=== PATIENT | male | born 1950 | race Caucasian/White ===

== ENCOUNTER 2017-04-11 19:44 | Emergency (ER) | payer OTHER ==
[~2017-04-11] VITALS: Ht 182.9 cm; Wt 100.0 kg
[~2017-04-11 19:44] MED LIST: CYCL-36 PO; IBUP800T23 PO; PRIL20CA PO
[2017-04-11] MEDS ORDERED: IOHEXOL 350 MG/ML 10 ML VIAL (for RAD DIAG) IVCONTRAST ONE (19:45)
[2017-04-11 19:52] VITALS: BP 155/95; PULSE 87; RESP 18; TEMP 98.2; O2SAT 95
[2017-04-11 20:00] VITALS: BP 152/95; PULSE 78; RESP 18; O2SAT 96
[2017-04-11] MEDS ORDERED: SODIUM CHLORIDE 0.9% FLUSH 10 ML FLUSH IVF PRN (20:00)
[2017-04-11] MEDS ORDERED: SODIUM CHLOR 0.9% 1000 ML INJ 1,000 ML IV ONE (20:00)
[2017-04-11] MEDS ORDERED: MORPHINE SULFATE 8 MG/ML INJ IV PUSH ONE (20:00)
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
[2017-04-11] MEDS ORDERED: HYDROmorphone HCL PF 0.5 MG/0.5 ML SYRINGE IV PUSH ONE ×2 (20:45→22:30)
[2017-04-11 20:50] LABS: AUTOMATED NEUTROPHIL # 5.5 TH/MM3 (1.8-7.7); BASOPHIL % 0.5 % (0.0-2.0); EOSINOPHIL # 0.1 TH/MM3 (0-0.4); EOSINOPHIL % 1.5 % (0.0-4.0); HEMATOCRIT 56.7 % (39.0-51.0); HEMOGLOBIN 19.2 GM/DL (13.0-17.0); LYMPH % 34.7 % (9.0-44.0); LYMPHOCYTE # 3.4 TH/MM3 (1.0-4.8); MEAN CELL VOLUME 102.2 FL (80.0-100.0); MEAN CORPUSCULAR HEMOGLOBIN 34.7 PG (27.0-34.0); MEAN CORPUSCULAR HGB CONC 33.9 % (32.0-36.0); MEAN PLATELET VOLUME 8.1 FL (7.0-11.0); MONOCYTE # 0.6 TH/MM3 (0-0.9); NEUT % 57.3 % (16.0-70.0); PLATELET COUNT 267 TH/MM3 (150-450); RED BLOOD COUNT 5.55 MIL/MM3 (4.50-5.90); RED CELL DISTRIBUTION WIDTH 16.5 % (11.6-17.2); WHITE BLOOD COUNT 9.7 TH/MM3 (4.0-11.0)
[2017-04-11 21:10] LABS: PROTHROMBIN TIME - PATIENT 10.8 SEC (9.8-11.6)
[2017-04-11 22:09] VITALS: BP 143/89; PULSE 81; RESP 18; O2SAT 96
[2017-04-11] MEDS ORDERED: HYDROmorphone HCL PF 1 MG/ML VIAL IV PUSH ONE (22:15)
[2017-04-11 22:33] LABS: BICARBONATE 26.5 MEQ/L (21.0-32.0); CALCIUM 8.1 MG/DL (8.5-10.1); CREATININE 0.85 MG/DL (0.60-1.30)
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
[2017-04-12] MEDS ORDERED: HYDR-3366 PO (00:16)
[2017-04-12] MEDS ORDERED: oxyCODONE/ACETAMINOPHEN 5 MG/325 MG TAB PO ONE (00:30)
[2017-04-19] MEDS ORDERED: MOBI15TA PO (12:46)
[2017-04-19] MEDS ORDERED: ULTR50TA5 PO (12:46)
[2017-04-19] MEDS ORDERED: LIDO5DIS5 TOPICAL (12:46)
[2017-04-19] MEDS ORDERED: ROBA750T PO (12:46)
== END 2017-04-12 00:57 | disposition home or self-care (01) ==
LOC: NEPE 19:44
DX: S22.41XA Multiple fractures of ribs, right side, initial encounter for closed fracture (principal); F10.129 Alcohol abuse with intoxication, unspecified; Y90.7 Blood alcohol level of 200-239 mg/100 ml; V29.9XXA Motorcycle rider (driver) (passenger) injured in unspecified traffic accident, initial encounter; Y92.481 Parking lot as the place of occurrence of the external cause
CPT/HCPCS: 70450; 71010; 71260; 72125; 74177; 80048; 80307; 85025; 85610; 85730; 86850; 86900; 86901; 94150; 96361; 96374; 96375; 96376; 99285; J1170; J2270; J7030; Q9967

== ENCOUNTER 2017-05-21 17:05 | Emergency (ER) | payer OTHER, MEDICAID ==
[~2017-05-21] VITALS: Ht 182.9 cm; Wt 100.0 kg
[~2017-05-21 17:05] MED LIST changes: -CYCL-36 PO; +HYDR-3516 PO; -IBUP800T23 PO; +LEVA750T9 PO; +OXYGENDME NAS.CANULA; +PERI PO; -PRIL20CA PO; +VENTAER INH
[2017-05-21 17:14] VITALS: BP 147/85; PULSE 77; RESP 18; TEMP 98.1; O2SAT 95
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
[2017-05-21] MEDS ORDERED: KETOROLAC TROMETHAMINE 30 MG/ML (IVP) VIAL IV PUSH ONE (17:30)
[2017-05-21] MEDS ORDERED: SODIUM CHLORIDE 0.9% FLUSH 10 ML FLUSH IVF PRN (17:30)
--- NOTE | 2017-05-21 17:51 | RADRPT ---
EXAM DATE/TIME: 05/21/2017 17:31 [facility] COMPARISON: CHEST SINGLE AP, April 28, 2017, 22:26. INDICATIONS : Short of breath. MEDICAL HISTORY : None. SURGICAL HISTORY : None. ENCOUNTER: Initial ACUITY: 1 day PAIN SCORE: 0/10 LOCATION: Bilateral chest FINDINGS: A single view of the chest demonstrates the lungs to be symmetrically aerated without evidence of mas s, infiltrate or effusion. The cardiomediastinal contours are unremarkable. Osseous structures are intact. CONCLUSION: No acute disease. Berny Joyce MD on May 21, 2017 at 17:48 Board Certified Radiologist. This report was verified electronically.
[2017-05-21 17:55] LABS: BASOPHIL % 0.2 % (0.0-2.0); EOSINOPHIL # 0.3 TH/MM3 (0-0.4); EOSINOPHIL % 2.3 % (0.0-4.0); HEMATOCRIT 47.5 % (39.0-51.0); HEMO FLAGS DIFF FINAL; LYMPH % 36.2 % (9.0-44.0); MEAN CELL VOLUME 100.2 FL (80.0-100.0); MEAN CORPUSCULAR HEMOGLOBIN 35.5 PG (27.0-34.0); MEAN CORPUSCULAR HGB CONC 35.4 % (32.0-36.0); MONO % 6.5 % (0.0-8.0); NEUT % 54.8 % (16.0-70.0); PLATELET COUNT 188 TH/MM3 (150-450); RED BLOOD COUNT 4.74 MIL/MM3 (4.50-5.90); RED CELL DISTRIBUTION WIDTH 14.4 % (11.6-17.2)
[2017-05-21 18:09] LABS: PROTHROMBIN TIME - PATIENT 10.3 SEC (9.8-11.6)
[2017-05-21 18:30] LABS: ANION GAP 12 MEQ/L (5-15); BLOOD UREA NITROGEN 6 MG/DL (7-18); CHLORIDE 100 MEQ/L (98-107); GLOMERULAR FILTRATION RATE 88 ML/MIN (>89); MAGNESIUM 1.5 MG/DL (1.5-2.5); SODIUM (NA) 137 MEQ/L (136-145)
[2017-05-21 18:31] LABS: ALCOHOL 271 MG/DL (0-5); CREATINE KINASE 47 U/L (39-308)
[2017-05-21 18:33] LABS: POTASSIUM 2.7 MEQ/L (3.5-5.1)
[2017-05-21] MEDS ORDERED: POTASSIUM CHLORIDE 20 MEQ CONTROLLED RELEASE TAB PO ONE (19:15)
[2017-05-21] MEDS ORDERED: POTASSIUM CHLOR 20 MEQ PREMIX 100 ML IV ONE (19:15)
[2017-05-21] MEDS ORDERED: POTASSIUM CHLORIDE 10 MEQ CONTROLLED RELEASE TAB PO ONE (20:45)
[2017-05-21 22:20] VITALS: BP 138/82
[2017-05-22] MEDS ORDERED: IOHEXOL 350 MG/ML 10 ML VIAL (for RAD DIAG) IVCONTRAST ONE (01:37)
--- NOTE | 2017-05-22 01:51 | RADRPT ---
EXAM DATE/TIME: 05/22/2017 01:20 [facility] COMPARISON: No previous studies available for comparison. INDICATIONS : Shortness of breath. IV CONTRAST: 75 Omnipaque 350 (iohexol) IV RADIATION DOSE: 14.60 CTDIvol (mGy) MEDICAL HISTORY : None SURGICAL HISTORY : None. ENCOUNTER: Initial ACUITY: 1 day PAIN SCALE: 0/10 LOCATION: chest TECHNIQUE: Volumetric scanning of the chest was performed using a pulmonary embolism protocol MIP images were re constructed. Using automated exposure control and adjustment of the mA and/or kV according to patien t size, radiation dose was kept as low as reasonably achievable to obtain optimal diagnostic quality images. DICOM format image data is available electronically for review and comparison. Follow-up recommendations for detected pulmonary nodules are based at a minimum on nodule size and pa tient risk factors according to Fleischner Society Guidelines. FINDINGS: PULMONARY ARTERIES: No filling defects are seen in the pulmonary arteries through the segmental level. LUNGS: There is no consolidation or pneumothorax . There is mild centrilobular emphysema. Atelectasis is pre sent in the right middle lobe and inferior lingula there is atherosclerotic disease of the aorta.. PLEURAE: There is no pleural thickening or pleural effusion. MEDIASTINUM: There is good visualization of the great vessels of the middle mediastinum. No evidence of mediastin al or hilar adenopathy/mass. There is atherosclerotic disease of aorta. MUSCULOSKELETAL: There are multiple right lateral retractors that appears subacute but incompletely united. MISCELLANEOUS: The visualized upper abdominal organs demonstrate no acute abnormality. There is a 12 mm subcutaneous nodule in the inferior anterior chest. CONCLUSION: 1. No PE is identified. 2. Otherwise, no acute finding is identified. There are multiple subacute appearing right lateral rib fractures. Bijan Cagle MD on May 22, 2017 at 1:46 Board Certified Radiologist. This report was verified electronically.
--- NOTE | 2017-05-22 02:26 | PD ---
Physical Exam Narrative GENERAL: Well-nourished, well-developed patient. SKIN: Warm and dry. HEAD: Normocephalic EYES: No injection or drainage. ENT: No nasal drainage noted. NECK: Supple, trachea midline. CARDIOVASCULAR: Regular rate and rhythm RESPIRATORY: Breath sounds equal bilaterally. No accessory muscle use. GASTROINTESTINAL: Abdomen soft, non-tender, nondistended. NEUROLOGICAL: Awake and alert. Motor and sensory grossly within normal limits. Normal speech. Data Data Last Documented VS Vital Signs Date Time Temp Pulse Resp B/P (MAP) Pulse Ox O2 Delivery O2 Flow Rate FiO2 05/21/17 22:20 70 16 138/82 (100) 99 05/21/17 17:20 Nasal Cannula 2.00 05/21/17 17:14 98.1 Orders Orders Complete Blood Count With Diff (05/21/17 17:17) Basic Metabolic Panel (Bmp) (05/21/17 17:17) D-Dimer (05/21/17 17:17) Act Partial Throm Time (Ptt) (05/21/17 17:17) Prothrombin Time / Inr (Pt) (05/21/17 17:17) Magnesium (Mg) (05/21/17 17:17) Ckmb (Isoenzyme) Profile (05/21/17 17:17) Troponin I (05/21/17 17:17) Iv Access Insert/Monitor (05/21/17 17:17) Electrocardiogram (05/21/17 17:17) Ecg Monitoring (05/21/17 17:17) Oximetry (05/21/17 17:17) Oxygen Administration (05/21/17 17:17) Chest, Single Ap (05/21/17 17:17) Sodium Chloride 0.9% Flush (Ns Flush) (05/21/17 17:30) Alcohol (Ethanol) (05/21/17 17:17) Ketorolac Inj (Toradol Inj) (05/21/17 17:30) Ct Pulmonary Angiogram (05/21/17 ) Potassium Chlor 20 Meq Premix (Kcl 20 Me (05/21/17 19:15) Potassium Chloride (Kcl) (05/21/17 19:15) Potassium Chloride (Kcl) (05/21/17 20:45) Iohexol 350 Inj (Omnipaque 350 Inj) (05/22/17 01:37) Ed Discharge Order (05/22/17 02:22) Labs Laboratory Tests Test 05/21/17 17:30 White Blood Count 11.0 TH/MM3 Red Blood Count 4.74 MIL/MM3 Hemoglobin 16.8 GM/DL Hematocrit 47.5 % Mean Corpuscular Volume 100.2 FL Mean Corpuscular Hemoglobin 35.5 PG Mean Corpuscular Hemoglobin Concent 35.4 % Red Cell Distribution Width 14.4 % Platelet Count 188 TH/MM3 Mean Platelet Volume 7.6 FL Neutrophils (%) (Auto) 54.8 % Lymphocytes (%) (Auto) 36.2 % Monocytes (%) (Auto) 6.5 % Eosinophils (%) (Auto) 2.3 % Basophils (%) (Auto) 0.2 % Neutrophils # (Auto) 6.0 TH/MM3 Lymphocytes # (Auto) 4.0 TH/MM3 Monocytes # (Auto) 0.7 TH/MM3 Eosinophils # (Auto) 0.3 TH/MM3 Basophils # (Auto) 0.0 TH/MM3 CBC Comment DIFF FINAL Differential Comment Prothrombin Time 10.3 SEC Prothromb Time International Ratio 1.0 RATIO Activated Partial Thromboplast Time 26.0 SEC D-Dimer Quantitative (PE/DVT) 0.63 MG/L FEU Blood Urea Nitrogen 6 MG/DL Creatinine 0.86 MG/DL Random Glucose 99 MG/DL Calcium Level 7.7 MG/DL Magnesium Level 1.5 MG/DL Sodium Level 137 MEQ/L Potassium Level 2.7 MEQ/L Chloride Level 100 MEQ/L Carbon Dioxide Level 25.0 MEQ/L Anion Gap 12 MEQ/L Estimat Glomerular Filtration Rate 88 ML/MIN Total Creatine Kinase 47 U/L Troponin I LESS THAN 0.02 NG/ML Ethyl Alcohol Level 271 MG/DL [facility] Supervised Visit with [facility]I: Yes Interpretation(s) Last 24 hours Impressions Chest X-Ray 05/21/17 [id number] Signed Impressions: Service Date/Time: April 17:31 - CONCLUSION: No acute disease. Berny Joyce MD CT chest no PE Narrative Course I, Dr. ureña, have reviewed the advance practice practitioner's documentation and am in agreement, met with the patient face to face, made the diagnosis, and the medical decision making was done by me. *My assessment and Findings: 67-year-old male presented with shortness of breath and alcohol intoxication. No that the patient is sober he denies any concurrent complaints at this time. CT scan shows no emergent process. Patient has steady gait and clear speech. He was advised he needed to seek alcohol rehabilitation, Patient denies any new complaints, all questions answered. Patient knows that follow up is incumbent on them and to return to the emergency room immediately if new or worsening symptoms develop. Patient given strict return precautions, vitals reviewed and are normal, agrees to further workup as an outpatient. Diagnosis Primary Impression: Shortness of breath Additional Impression: Alcohol intoxication Qualified Codes: F10.920 - Alcohol use, unspecified with intoxication, uncomplicated Patient Instructions: General Instructions Additional Instruction: Limit alcohol use, set up primary care physician, return as needed Med/Other Pt SpecificInfo: No Change to Meds Scripts No Active Prescriptions or Reported Meds Disposition: 01 DISCHARGE HOME Condition: Stable Chelle Ureña MD May 22, 2017 02:26
--- NOTE | 2017-05-22 16:42 | EKG ---
Date Performed: 05/21/2017 Time Performed: 18:26:26 PTAGE: 67 years EKG: Sinus rhythm NONSPECIFIC T-WAVE ABNORMALITY Since previous tracing, no significant change noted BORDERLINE ECG PREVIOUS TRACING : 09/30/1994 18.49 DOCTOR: Barbie Hunt Interpretating Date/Time 05/22/2017 16:40:30
== END 2017-05-22 02:50 | disposition home or self-care (01) ==
LOC: NEPE 17:05
DX: R06.02 Shortness of breath (principal); F10.920 Alcohol use, unspecified with intoxication, uncomplicated; R07.89 Other chest pain; E87.6 Hypokalemia; R94.31 Abnormal electrocardiogram [ECG] [EKG]; F17.200 Nicotine dependence, unspecified, uncomplicated; Z87.19 Personal history of other diseases of the digestive system; Z87.09 Personal history of other diseases of the respiratory system
CPT/HCPCS: 71010; 71275; 80048; 80307; 82550; 83735; 84484; 85025; 85379; 85610; 85730; 93005; 96374; 99285; J1885; Q9967